=== PATIENT | male | born 1990 | race Caucasian/White ===

== ENCOUNTER 2020-06-30 20:26 | Emergency (ER) | payer MEDICAID, OTHER ==
--- NOTE | 2020-06-30 23:13 | EDM.PDOC ---
ED HPI GENERAL MEDICAL PROBLEM - General Chief Complaint: Respiratory Problem Stated Complaint: FEVER/COUGH/AROUND COVID POSITIVE PEOPLE Time Seen by Provider: 06/30/20 20:51 Source of Information: Reports: Patient, Other ([facility] careegiver) History Limitations: Reports: Physical Impairment (Cerebral palsy) - History of Present Illness INITIAL COMMENTS - FREE TEXT/NARRATIVE: Mr. Fitzgerald is a very pleasant 30-year-old gentleman with a past medical history significant for cerebral palsy with intellectual disability, a resident of a skilled nursing, who is now brought to the ED by 1 of his caregivers with a complaint of a slight cough since this morning, a fever of 101.1 degrees today, and periumbilical abdominal cramps that have been coming and going since this evening. The patient states that when present, the seem to last about 2 minutes, but he is unable to estimate how often they are occurring. No associated nausea, vomiting, constipation, diarrhea, or urinary symptoms. No prior similar symptoms. The patient was given Tylenol around 19:00 this evening. The patient's caregiver tells me that 2 other caregivers at the patient's skilled nursing tested positive for COVID-19. Here in the ED, the patient is found to be hemodynamically stable, afebrile, saturating 94% on room air. Other than today's symptoms, the patient's caregiver tells me that the patient has not had recent chills, sore throat, ear pain, nasal or sinus congestion, dyspnea, chest pain, palpitations, nausea, vomiting, constipation, diarrhea, urinary symptoms, recent weight gain or weight loss, recent bloody bowel movements or black bowel movements, recent joint aches, headaches, or rashes. The patient's PCP is Dr. Celio Hylton. His Neurologist is Dr. Candace You. His gastroenterology midlevel is Angeles Rogers NP. Treatments HOME VISITOR: Reports: Other (see below) Other Treatments HOME VISITOR: tylenol Abdomen Pain Score (Numeric/FACES): 7 - Related Data Allergies Allergy/AdvReac Type Severity Reaction Status Date / Time acetaminophen [From Percocet] Allergy Severe Cannot Verified 06/30/20 20:45 Remember hydrocortisone Allergy Severe Cannot Verified 06/30/20 20:45 Remember mupirocin Allergy Severe Cannot Verified 06/30/20 20:45 Remember oxycodone [From Percocet] Allergy Severe Cannot Verified 06/30/20 20:45 Remember Home Meds: Home Meds Acetaminophen [Tylenol Extra Strength] 500 mg PO ASDIRECTED PRN 12/05/17 [History] [place] Gel 12/05/17 [History] Benzoyl Peroxide [Acne Treatment Cleansing Bar] 1 each TP 12/05/17 [History] Bismuth Subsalicylate [Pepto Bismol] 2 tbsp PO ASDIRECTED 12/05/17 [History] Cholecalciferol (Vitamin D3) [Vitamin D] 2,000 unit PO DAILY 12/05/17 [History] Clindamycin Swabs 12/05/17 [History] Levothyroxine 175 mcg PO ACBRK 12/05/17 [History] Power Pudding 12/05/17 [History] Past Medical History Neurological History: Reports: Cerebral Palsy (with cognitive impairment) Psychiatric History: Reports: Anxiety, Depression Endocrine/Metabolic History: Reports: Hypothyroidism - Past Surgical History GI Surgical History: Reports: Other (See Below) (PEG tube when younger, since removed) Social & Family History - Tobacco Use Smoking Status *Q: Never Smoker - Caffeine Use Caffeine Use: Reports: Soda - Alcohol Use Alcohol Use History: No - Recreational Drug Use Recreational Drug Use: No - Living Situation & Occupation Living situation: Reports: Single, Other ([facility]) Occupation: Disabled ED ROS GENERAL - Review of Systems Review Of Systems: Comprehensive ROS is negative, except as noted in HPI. GI/Abdominal: Reports: Constipation (chronic) ED EXAM, GENERAL - Physical Exam Exam: See Below Exam Limited By: No Limitations General Appearance: Alert, WD/WN, No Apparent Distress (watching a movie on TV) Eye Exam: Bilateral Eye: EOMI, Normal Inspection Ears: Normal External Exam, Hearing Grossly Normal Nose: Normal Inspection Throat/Mouth: Normal Inspection, Normal Lips, Normal Oropharynx, Normal Voice, No Airway Compromise Head: Atraumatic, Normocephalic Neck: Normal Inspection, Full Range of Motion Respiratory/Chest: No Respiratory Distress, Lungs Clear, Normal Breath Sounds, No Accessory Muscle Use Cardiovascular: Normal Peripheral Pulses, Regular Rate, Rhythm, No Edema, No Gallop, No JVD, No Murmur, No Rub Peripheral Pulses: 3+: Radial (L), Radial (R) GI/Abdominal: Normal Bowel Sounds, Soft, No Organomegaly, No Distention, No Abnormal Bruit, No Mass, Tender (Generalized, non-focal) (Male) Exam: Deferred Rectal (Males) Exam: Deferred Back Exam: Normal Inspection, Full Range of Motion. No: CVA Tenderness (L), CVA Tenderness (R) Extremities: Normal Inspection, Normal Range of Motion, No Pedal Edema, Normal C apillary Refill Neurological: Alert, No Motor/Sensory Deficits Psychiatric: Normal Affect Skin Exam: Warm, Dry, Intact, Normal Color, No Rash Course - Vital Signs Last Recorded V/S: Last Vital Signs Temp 37.2 C 06/30/20 20:51 Pulse 98 06/30/20 20:51 Resp 20 06/30/20 20:51 BP 126/92 H 06/30/20 20:51 Pulse Ox 94 L 06/30/20 20:51 - Orders/Labs/Meds Labs: Laboratory Tests 06/30/20 06/30/20 06/30/20 Range/Units 23:33 23:33 23:33 WBC 4.07 L (4.23-9.07) K/mm3 RBC 5.06 (4.63-6.08) M/mm3 Hgb 15.0 (13.7-17.5) gm/dl Hct 43.1 (40.1-51.0) % MCV 85.2 (79.0-92.2) fl MCH 29.6 (25.7-32.2) pg MCHC 34.8 (32.2-35.5) g/dl RDW Std Deviation 37.9 (35.1-43.9) fL Plt Count 159 L (163-337) K/mm3 MPV 9.4 (9.4-12.3) fl Neutrophils % (Manual) 69 H (40-60) % Band Neutrophils % 0 (0-10) % Lymphocytes % (Manual) 25 (20-40) % Atypical Lymphs % 0 % Monocytes % (Manual) 6 (2-10) % Eosinophils % (Manual) 0 L (0.8-7.0) % Basophils % (Manual) 0 L (0.2-1.2) Platelet Estimate Adequate RBC Morph Comment Normal Sodium 139 (136-145) mEq/L Potassium 3.7 (3.5-5.1) mEq/L Chloride 104 (98-107) mEq/L Carbon Dioxide 29 (21-32) mEq/L Anion Gap 9.7 (5-15) BUN 15 (7-18) mg/dL Creatinine 1.2 (0.7-1.3) mg/dL Est Cr Clr Drug Dosing 77.59 mL/min Estimated GFR (MDRD) > 60 (>60) mL/min BUN/Creatinine Ratio 12.5 L (14-18) Glucose 105 (74-106) mg/dL Calcium 8.8 (8.5-10.1) mg/dL Total Bilirubin 0.3 (0.2-1.0) mg/dL AST 21 (15-37) U/L ALT 34 (16-63) U/L Alkaline Phosphatase 101 (46-116) U/L Total Protein 6.7 (6.4-8.2) g/dl Albumin 3.6 (3.4-5.0) g/dl Globulin 3.1 gm/dL Albumin/Globulin Ratio 1.2 (1-2) Lipase 205 (73-393) U/L Urine Color (Yellow) Urine Appearance (Clear) Urine pH (5.0-8.0) Ur Specific [place] (1.005-1.030) Urine Protein (Negative) Urine Glucose (UA) (Negative) Urine Ketones (Negative) Urine Occult Blood (Negative) Urine Nitrite (Negative) Urine Bilirubin (Negative) Urine Urobilinogen (0.2-1.0) Ur Leukocyte Esterase (Negative) Urine RBC (0-5) /hpf Urine WBC (0-5) /hpf Ur Squamous Epith Cells (0-5) /hpf Urine Bacteria (FEW) /hpf Urine Mucus (FEW) /hpf SARS Virus RNA (PCR) Positive H (NEGATIVE) 07/01/20 Range/Units 01:05 WBC (4.23-9.07) K/mm3 RBC (4.63-6.08) M/mm3 Hgb (13.7-17.5) gm/dl Hct (40.1-51.0) % MCV (79.0-92.2) fl MCH (25.7-32.2) pg MCHC (32.2-35.5) g/dl RDW Std Deviation (35.1-43.9) fL Plt Count (163-337) K/mm3 MPV (9.4-12.3) fl Neutrophils % (Manual) (40-60) % Band Neutrophils % (0-10) % Lymphocytes % (Manual) (20-40) % Atypical Lymphs % % Monocytes % (Manual) (2-10) % Eosinophils % (Manual) (0.8-7.0) % Basophils % (Manual) (0.2-1.2) Platelet Estimate RBC Morph Comment Sodium (136-145) mEq/L Potassium (3.5-5.1) mEq/L Chloride (98-107) mEq/L Carbon Dioxide (21-32) mEq/L Anion Gap (5-15) BUN (7-18) mg/dL Creatinine (0.7-1.3) mg/dL Est Cr Clr Drug Dosing mL/min Estimated GFR (MDRD) (>60) mL/min BUN/Creatinine Ratio (14-18) Glucose (74-106) mg/dL Calcium (8.5-10.1) mg/dL Total Bilirubin (0.2-1.0) mg/dL AST (15-37) U/L ALT (16-63) U/L Alkaline Phosphatase (46-116) U/L Total Protein (6.4-8.2) g/dl Albumin (3.4-5.0) g/dl Globulin gm/dL Albumin/Globulin Ratio (1-2) Lipase (73-393) U/L Urine Color Yellow (Yellow) Urine Appearance Clear (Clear) Urine pH 6.5 (5.0-8.0) Ur Specific [place] 1.015 (1.005-1.030) Urine Protein Negative (Negative) Urine Glucose (UA) Negative (Negative) Urine Ketones Negative (Negative) Urine Occult Blood Negative (Negative) Urine Nitrite Negative (Negative) Urine Bilirubin Negative (Negative) Urine Urobilinogen 0.2 (0.2-1.0) Ur Leukocyte Esterase Negative (Negative) Urine RBC 0-5 (0-5) /hpf Urine WBC 0-5 (0-5) /hpf Ur Squamous Epith Cells 0-5 (0-5) /hpf Urine Bacteria Few (FEW) /hpf Urine Mucus Not seen (FEW) /hpf SARS Virus RNA (PCR) (NEGATIVE) Meds: Medications Discontinued Medications Generic Name Dose Route Start Last Admin Trade Name Freq PRN Reason Stop Dose Admin Sodium Chloride 1,000 mls @ 150 mls/hr 06/30/20 23:15 06/30/20 23:35 Normal Saline IV 150 mls/hr ASDIRECTED URI Administration Iopamidol 100 ml 07/01/20 01:08 07/01/20 01:56 Isovue-300 (61%) IVPUSH 07/01/20 01:09 100 ml ONETIME ONE Administration Sodium Chloride 10 ml 07/01/20 01:08 07/01/20 01:57 Saline Flush FLUSH 07/01/20 01:09 10 ml ONETIME ONE Administration - Re-Assessments/Exams Free Text/Narrative Re-Assessment/Exam: 06/30/20 23:08 As above, the patient has a history of cerebral palsy, and is therefore able to give only a limited history. He tells me that he has had crampy periumbilical abdominal pain coming and going since this evening, and on examination, he appears to have generalized tenderness. I have therefore ordered a work-up that includes blood work, a urinalysis, and a CT scan of his abdomen and pelvis with oral and IV contrast. In the meantime, the patient will be given IV fluid, however, he does not appear to be in any distress, therefore I am going to withhold pain medication at this time, and he states that he has had not had any nausea or vomiting at all, therefore I will withhold Zofran, presently. Because of the report of the patient being exposed to 2 of his caregivers that later tested positive for COVID-19, and because of a report of him having a slight cough since this morning, I have added a test for the SARS-CoV-2 virus. 07/01/20 00:42 The patient's CBC is remarkable for leukopenia 4.07, and thrombocytopenia of 159,000, with the remainder of his CBC being unremarkable. His CMP is unremarkable. His lipase level is within normal limits at 205. His test for the SARS-CoV-2 virus has returned positive. Urinalysis and CT of the abdomen and pelvis results are still pending. 07/01/20 01:50 The patient's urinalysis is unremarkable. CT of the abdomen and pelvis with oral and IV contrast is read by the read as: 1. Nondilated fluid-filled thickened small bowel loops. Apparent small bowel tethering around RIGHT lower quadrant fulcrum. Liquid stool within the RIGHT and transverse colon. Findings can suggest gastroenteritis/diarrheal disease. Cannot exclude possible internal hernia. 2. Distended bladder. 07/01/20 02:[address] Alexis at 02:02. He feels that all of the CT findings can be explained by COVID-19, and he doubts that the patient actually has an internal hernia, since the PEG that he had when he was younger would have been in the left upper quadrant, not the right lower quadrant. Additionally, the patient does not have nausea or vomiting, which one would expect with an internal hernia. He feels that the patient may safely be discharged home, however, he should be brought back to the ED if he develops nausea and vomiting. 07/01/20 02:10 Test results discussed with the patient and his caregiver. As above, all the patient's symptoms appear to be due to COVID-19. I will discharge the patient home with the recommendation that he be brought back if any of his symptoms worsen. Departure - Departure Time of Disposition: 02:10 Disposition: Home, Self-Care 01 Condition: Good Clinical Impression: COVID-19 - Discharge Information *PRESCRIPTION DRUG MONITORING PROGRAM REVIEWED*: Not Applicable *COPY OF PRESCRIPTION DRUG MONITORING REPORT IN PATIENT CARYL: Not Applicable Instructions: COVID-19, Prevent the Spread of COVID-19 if You Are Sick - [facility] Referrals: Celio Hylton MD [Primary Care Provider] - Candace You MD [Ordering Only Provider] - Angeles Rogers NP [Ordering Only Provider] - Forms: ED Department Discharge Additional Instructions: Michele was seen in the emergency room after developing a fever today, slight cough this morning, and abdominal pain this evening. Work-up in the ER included blood work, a urinalysis, CT scan of his abdomen and pelvis with oral and IV contrast, and a test for the SARS-CoV-2 virus. His test for the SARS-CoV-2 virus returned positive, indicating that Michele has COVID-19. His CT scan had some abnormalities, however, his case was discussed with the surgeon on-call, who felt that all of the abnormalities could be explained by COVID-19. Michele was not sick enough to require hospitalization, however, if he developed nausea, vomiting, shortness of breath, or any other concerning symptoms, please do not hesitate to return him to the ER for reevaluation. Sepsis Event Note (ED) - Evaluation Sepsis Screening Result: No Definite Risk
[2020-06-30] MEDS ORDERED: Sodium Chloride 0.9% 1,000 ML IV SCH (23:15)
[2020-07-01] MEDS ORDERED: Sodium Chloride 0.9% 10 ML Syringe FLUSH ONE (01:08)
[2020-07-01] MEDS ORDERED: Iopamidol 612 MG/ML 100 ML Bottle IVPUSH ONE (01:08)
--- NOTE | 2020-07-01 10:26 | CT ---
CT abdomen and pelvis Technique: Multiple axial sections were obtained from above the dome of the diaphragm inferiorly through the pubic symphysis. Intravenous contrast was utilized. Small amount of oral contrast is seen. Delayed images were obtained through the bladder. Comparison: Prior CT abdomen and pelvis exam of 11/21/10. Findings: Liver shows no focal abnormality. Spleen appears within normal limits. Adrenal glands contain no nodule. Pancreas is within normal limits. Kidneys show symmetric contrast enhancement without hydronephrosis or mass. Aorta shows no aneurysm. No retroperitoneal adenopathy is seen. No pelvic mass or adenopathy is identified. Delayed images shows contrast within the bladder and within the ureters. Bladder is somewhat distended. Fluid is seen within small bowel. There is slight increased gas within a loop of sigmoid colon believed to be incidental. Other gas believed to be within small bowel. Appendix not visualized with certainty. There is some spiculation of a loop of small bowel wall which is seen within the right lower abdomen possibly relating to adjacent mesenteric scarring. Bone window settings were reviewed which shows no acute osseous finding. Impression: 1. Slight fluid and gas within small bowel. Difficult to exclude gastroenteritis if patient has correlating symptoms. This bowel gas pattern does not appear to be obstructive. 2. Minimal spiculation within a loop of small bowel located within the right lower abdomen. This most likely relates to a small area of adjacent mesenteric scarring and is nonacute. 3. Other findings believed to be incidental as described above. Diagnostic code #3 Agree with preliminary report issued by [employer] ([employer] preliminary report dictated on 07/01/20, 2:38 AM Central Daylight Time) Study was dictated in MDT
== END 2020-07-01 02:25 | disposition home or self-care (01) ==
LOC: JD.ED 20:26
DX: U07.1 COVID-19 (principal); E03.9 Hypothyroidism, unspecified; Z88.5 Allergy status to narcotic agent; Z88.8 Allergy status to other drugs, medicaments and biological substances; Z79.899 Other long term (current) drug therapy
CPT/HCPCS: 36415; 51701; 74177; 80053; 81001; 83690; 85007; 85027; 87635; 99284; J7030; Q9967; 99283; U0002

== ENCOUNTER 2021-06-08 08:21 | Emergency (ER) | payer MEDICAID ==
--- NOTE | 2021-06-08 09:15 | EDM.PDOC ---
ED HPI GENERAL MEDICAL PROBLEM - General Chief Complaint: ENT Problem Stated Complaint: EAR PAIN Time Seen by Provider: 06/08/21 08:47 Source of Information: Reports: Patient, RN Notes Reviewed, Other (lawn care specialist) - History of Present Illness INITIAL COMMENTS - FREE TEXT/NARRATIVE: Pt has been "digging at right ear, complaining of R ear discomfort" Has put things in ear canal previously. There is concern by caregiver for FB. Has not been ill. No drainage, fever or other unusual sx. Right Ear Pain Score (Numeric/FACES): 5 - Related Data Allergies Allergy/AdvReac Type Severity Reaction Status Date / Time acetaminophen [From Percocet] Allergy Severe Cannot Verified 06/08/21 08:42 Remember hydrocortisone Allergy Severe Cannot Verified 06/08/21 08:42 Remember mupirocin Allergy Severe Cannot Verified 06/08/21 08:42 Remember oxycodone [From Percocet] Allergy Severe Cannot Verified 06/08/21 08:42 Remember Home Meds: Home Meds Acetaminophen [Tylenol Extra Strength] 500 mg PO ASDIRECTED PRN 12/05/17 [History] [place] Gel 12/05/17 [History] Benzoyl Peroxide [Acne Treatment Cleansing Bar] 1 each TP 12/05/17 [History] Bismuth Subsalicylate [Pepto Bismol] 2 tbsp PO ASDIRECTED 12/05/17 [History] Cholecalciferol (Vitamin D3) [Vitamin D] 2,000 unit PO DAILY 12/05/17 [History] Clindamycin Swabs 12/05/17 [History] Levothyroxine 175 mcg PO ACBRK 12/05/17 [History] Power Pudding 12/05/17 [History] Past Medical History Neurological History: Reports: Cerebral Palsy Psychiatric History: Reports: Anxiety, Depression Endocrine/Metabolic History: Reports: Hypothyroidism - Infectious Disease History Infectious Disease History: Reports: Novel Coronavirus - Past Surgical History GI Surgical History: Reports: Other (See Below) (PEG tube when younger, since removed) Social & Family History - Tobacco Use Tobacco Use Status *Q: Never Tobacco User - Caffeine Use Caffeine Use: Reports: Soda - Recreational Drug Use Recreational Drug Use: No - Living Situation & Occupation Living situation: Reports: Single, 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 Denies: Ear Discharge Respiratory: Denies: Shortness of Breath, Cough Cardiovascular: Denies: Chest Pain GI/Abdominal: Reports: No Symptoms Musculoskeletal: Reports: No Symptoms Skin: Reports: No Symptoms Neurological: Reports: No Symptoms ED EXAM, ENT - Physical Exam Exam: See Below General Appearance: Alert, No Apparent Distress Ears: Normal External Exam, Normal Canal, Normal TMs Nose: Normal Inspection Mouth/Throat: Normal Inspection Head: Atraumatic Neck: Supple Respiratory/Chest: No Respiratory Distress Neurological: Alert, Other (good eye contact, cooperative with exam) Skin: Warm, Dry, Normal Color Course - Vital Signs Last Recorded V/S: Last Vital Signs Temp 97.0 F 06/08/21 08:38 Pulse 100 06/08/21 08:38 Resp 16 06/08/21 08:38 BP 118/94 H 06/08/21 08:38 Pulse Ox 96 06/08/21 08:38 Departure - Departure Time of Disposition: 09:14 Disposition: Home, Self-Care 01 Condition: Fair Clinical Impression: Discomfort of right ear - Discharge Information Instructions: Earache, Adult Referrals: Celio Hylton MD [Primary Care Provider] - Forms: ED Department Discharge Additional Instructions: No foreign body or findings for infection visible today. Follow up with Dr Diego next week as planned. Sepsis Event Note (ED) - Evaluation Sepsis Screening Result: No Definite Risk - Focused Exam Vital Signs: Vital Signs Temp Pulse Resp BP Pulse Ox 06/08/21 08:38 97.0 F 100 16 118/94 H 96
== END 2021-06-08 09:20 | disposition home or self-care (01) ==
LOC: JD.ED 08:21
DX: H92.02 Otalgia, left ear (principal); E03.9 Hypothyroidism, unspecified; Z88.5 Allergy status to narcotic agent; Z88.8 Allergy status to other drugs, medicaments and biological substances; Z88.6 Allergy status to analgesic agent; Z88.1 Allergy status to other antibiotic agents; Z79.899 Other long term (current) drug therapy; Z86.16 Personal history of COVID-19
CPT/HCPCS: 99282